=== PATIENT | male | born 1930 | race African-American/Black ===

== ENCOUNTER → 2016-12-20 | Outpatient (CLI) | payer MEDICARE ==
[~2016-12-20] VITALS: Ht 172.7 cm; Wt 49.2 kg
[~2016-12-20] MED LIST: COLL30OI TP; METF500T4 PO
[2016-12-20 08:24] VITALS: BP 130/70
== END | disposition home or self-care (01) ==
LOC: EDBD → HBOWC 08:15
PROVIDERS: ATTEND Emergency Medicine
DX: E11.621 Type 2 diabetes mellitus with foot ulcer (principal); E11.622 Type 2 diabetes mellitus with other skin ulcer; L97.811 Non-pressure chronic ulcer of other part of right lower leg limited to breakdown of skin; L97.411 Non-pressure chronic ulcer of right heel and midfoot limited to breakdown of skin; E11.52 Type 2 diabetes mellitus with diabetic peripheral angiopathy with gangrene; M86.68 Other chronic osteomyelitis, other site; Z89.512 Acquired absence of left leg below knee; Z72.0 Tobacco use
CPT/HCPCS: 97597; 97598; G0463

== ENCOUNTER → 2016-12-27 | Outpatient (CLI) | payer MEDICARE, BC | END | disposition home or self-care (01) | LOC: EDBD → RADPV 08:48 | PROVIDERS: ATTEND Emergency Medicine | DX: L97.819 Non-pressure chronic ulcer of other part of right lower leg with unspecified severity (principal); I70.8 Atherosclerosis of other arteries ==

== ENCOUNTER → 2017-01-04 | Outpatient (CLI) | payer MEDICARE, BC ==
[2017-01-04 11:49] VITALS: BP 136/68
== END | disposition home or self-care (01) ==
LOC: EDBD → HBOWC 09:45
PROVIDERS: ATTEND Emergency Medicine
DX: T87.89 Other complications of amputation stump (principal); E11.621 Type 2 diabetes mellitus with foot ulcer; L97.511 Non-pressure chronic ulcer of other part of right foot limited to breakdown of skin; E11.622 Type 2 diabetes mellitus with other skin ulcer; L97.811 Non-pressure chronic ulcer of other part of right lower leg limited to breakdown of skin; E11.51 Type 2 diabetes mellitus with diabetic peripheral angiopathy without gangrene; E11.69 Type 2 diabetes mellitus with other specified complication; M86.68 Other chronic osteomyelitis, other site; Z72.0 Tobacco use; Y83.5 Amputation of limb(s) as the cause of abnormal reaction of the patient, or of later complication, without mention of misadventure at the time of the procedure
CPT/HCPCS: 97597

== ENCOUNTER → 2017-01-18 | Outpatient (CLI) | payer MEDICARE, BC ==
[~2017-01-18] MED LIST changes: -METF500T4 PO
[2017-01-18 09:54] VITALS: BP 142/76
== END | disposition home or self-care (01) ==
LOC: EDBD → HBOWC 09:03
PROVIDERS: ATTEND Emergency Medicine
DX: E11.621 Type 2 diabetes mellitus with foot ulcer (principal); L97.411 Non-pressure chronic ulcer of right heel and midfoot limited to breakdown of skin; E11.622 Type 2 diabetes mellitus with other skin ulcer; L97.811 Non-pressure chronic ulcer of other part of right lower leg limited to breakdown of skin; E11.69 Type 2 diabetes mellitus with other specified complication; M86.68 Other chronic osteomyelitis, other site; E11.52 Type 2 diabetes mellitus with diabetic peripheral angiopathy with gangrene; Z72.0 Tobacco use
CPT/HCPCS: 97597

== ENCOUNTER → 2017-02-08 | Outpatient (CLI) | payer MEDICARE, BC ==
[2017-02-08 14:30] VITALS: BP 144/76
== END | disposition home or self-care (01) ==
LOC: HBOWC 13:22
PROVIDERS: ATTEND Emergency Medicine
DX: E11.622 Type 2 diabetes mellitus with other skin ulcer (principal); L97.811 Non-pressure chronic ulcer of other part of right lower leg limited to breakdown of skin; E11.621 Type 2 diabetes mellitus with foot ulcer; L97.411 Non-pressure chronic ulcer of right heel and midfoot limited to breakdown of skin; E11.52 Type 2 diabetes mellitus with diabetic peripheral angiopathy with gangrene; E11.69 Type 2 diabetes mellitus with other specified complication; M86.8X8 Other osteomyelitis, other site
CPT/HCPCS: 97597

== ENCOUNTER → 2017-03-14 | Outpatient (CLI) | payer MEDICARE, BC ==
[2017-03-14 12:02] VITALS: BP 120/66
== END | disposition home or self-care (01) ==
LOC: HBOWC 11:06
PROVIDERS: ATTEND Emergency Medicine
DX: E11.622 Type 2 diabetes mellitus with other skin ulcer (principal); L97.814 Non-pressure chronic ulcer of other part of right lower leg with necrosis of bone; E11.621 Type 2 diabetes mellitus with foot ulcer; L97.411 Non-pressure chronic ulcer of right heel and midfoot limited to breakdown of skin; E11.69 Type 2 diabetes mellitus with other specified complication; M86.68 Other chronic osteomyelitis, other site; E11.52 Type 2 diabetes mellitus with diabetic peripheral angiopathy with gangrene; Z72.0 Tobacco use
CPT/HCPCS: 97597

== ENCOUNTER → 2017-03-28 | Outpatient (CLI) | payer MEDICARE, BC ==
[2017-03-28 11:35] VITALS: BP 104/63
== END | disposition home or self-care (01) ==
LOC: HBOWC 11:09
PROVIDERS: ATTEND Emergency Medicine
DX: E11.622 Type 2 diabetes mellitus with other skin ulcer (principal); L97.811 Non-pressure chronic ulcer of other part of right lower leg limited to breakdown of skin; L97.411 Non-pressure chronic ulcer of right heel and midfoot limited to breakdown of skin; L97.821 Non-pressure chronic ulcer of other part of left lower leg limited to breakdown of skin; M86.661 Other chronic osteomyelitis, right tibia and fibula; E11.621 Type 2 diabetes mellitus with foot ulcer; Z89.512 Acquired absence of left leg below knee; E11.52 Type 2 diabetes mellitus with diabetic peripheral angiopathy with gangrene
CPT/HCPCS: 97597

== ENCOUNTER → 2017-04-11 | Outpatient (CLI) | payer MEDICARE, BC ==
[2017-04-11 08:21] VITALS: BP 147/65
== END | disposition home or self-care (01) ==
LOC: HBOWC 08:10
PROVIDERS: ATTEND Emergency Medicine
DX: E11.621 Type 2 diabetes mellitus with foot ulcer (principal); L97.411 Non-pressure chronic ulcer of right heel and midfoot limited to breakdown of skin; L97.511 Non-pressure chronic ulcer of other part of right foot limited to breakdown of skin; E11.622 Type 2 diabetes mellitus with other skin ulcer; L97.814 Non-pressure chronic ulcer of other part of right lower leg with necrosis of bone; L97.821 Non-pressure chronic ulcer of other part of left lower leg limited to breakdown of skin; E11.69 Type 2 diabetes mellitus with other specified complication; M86.661 Other chronic osteomyelitis, right tibia and fibula; E11.52 Type 2 diabetes mellitus with diabetic peripheral angiopathy with gangrene; Z89.512 Acquired absence of left leg below knee; Z72.0 Tobacco use
CPT/HCPCS: 97597

== ENCOUNTER → 2017-05-03 | Outpatient (CLI) | payer MEDICARE, BC ==
[2017-05-03 12:15] VITALS: BP 108/46
== END | disposition home or self-care (01) ==
LOC: HBOWC 11:04
PROVIDERS: ATTEND Emergency Medicine
DX: E11.621 Type 2 diabetes mellitus with foot ulcer (principal); L97.411 Non-pressure chronic ulcer of right heel and midfoot limited to breakdown of skin; E11.622 Type 2 diabetes mellitus with other skin ulcer; L97.811 Non-pressure chronic ulcer of other part of right lower leg limited to breakdown of skin; L97.821 Non-pressure chronic ulcer of other part of left lower leg limited to breakdown of skin; E11.69 Type 2 diabetes mellitus with other specified complication; M86.661 Other chronic osteomyelitis, right tibia and fibula; E11.52 Type 2 diabetes mellitus with diabetic peripheral angiopathy with gangrene; Z89.512 Acquired absence of left leg below knee; Z72.0 Tobacco use
CPT/HCPCS: 97597

== ENCOUNTER → 2017-05-27 | Outpatient (CLI) | payer MEDICARE, BC ==
[~2017-05-27] MED LIST changes: +METF500T4 PO
[2017-05-27 09:35] VITALS: BP 143/72
== END | disposition home or self-care (01) ==
LOC: HBOWC 08:45
PROVIDERS: ATTEND Emergency Medicine
DX: E11.622 Type 2 diabetes mellitus with other skin ulcer (principal); L97.811 Non-pressure chronic ulcer of other part of right lower leg limited to breakdown of skin; E11.621 Type 2 diabetes mellitus with foot ulcer; L97.411 Non-pressure chronic ulcer of right heel and midfoot limited to breakdown of skin; E11.52 Type 2 diabetes mellitus with diabetic peripheral angiopathy with gangrene; E11.69 Type 2 diabetes mellitus with other specified complication; M86.9 Osteomyelitis, unspecified; Z89.512 Acquired absence of left leg below knee
CPT/HCPCS: 97597

== ENCOUNTER → 2017-06-22 | Outpatient (CLI) | payer MEDICARE, BC ==
[~2017-06-22] MED LIST changes: -METF500T4 PO
[2017-06-22 11:33] VITALS: BP 147/72
== END | disposition home or self-care (01) ==
LOC: HBOWC 11:26
PROVIDERS: ATTEND Emergency Medicine
DX: E11.622 Type 2 diabetes mellitus with other skin ulcer (principal); L97.811 Non-pressure chronic ulcer of other part of right lower leg limited to breakdown of skin; E11.69 Type 2 diabetes mellitus with other specified complication; E11.52 Type 2 diabetes mellitus with diabetic peripheral angiopathy with gangrene; M86.661 Other chronic osteomyelitis, right tibia and fibula; M86.8X6 Other osteomyelitis, lower leg; Z89.512 Acquired absence of left leg below knee
CPT/HCPCS: 97597

== ENCOUNTER → 2017-07-06 | Outpatient (CLI) | payer MEDICARE, BC ==
[2017-07-06 11:51] VITALS: BP 137/70
== END | disposition home or self-care (01) ==
LOC: HBOWC 11:01
PROVIDERS: ATTEND Emergency Medicine
DX: E11.621 Type 2 diabetes mellitus with foot ulcer (principal); L97.511 Non-pressure chronic ulcer of other part of right foot limited to breakdown of skin; E11.69 Type 2 diabetes mellitus with other specified complication; M86.661 Other chronic osteomyelitis, right tibia and fibula; E11.52 Type 2 diabetes mellitus with diabetic peripheral angiopathy with gangrene; Z89.512 Acquired absence of left leg below knee
CPT/HCPCS: 97597

== ENCOUNTER → 2017-08-02 | Outpatient (CLI) | payer MEDICARE, BC ==
[~2017-08-02] MED LIST changes: +LIDOCAINE HCL 2% 5 ML JELLY TP ONE
[2017-08-02 08:57] VITALS: BP 154/79
== END | disposition home or self-care (01) ==
LOC: HBOWC 08:45
PROVIDERS: ATTEND Emergency Medicine
DX: S81.801D Unspecified open wound, right lower leg, subsequent encounter (principal); E11.52 Type 2 diabetes mellitus with diabetic peripheral angiopathy with gangrene; E11.69 Type 2 diabetes mellitus with other specified complication; M86.661 Other chronic osteomyelitis, right tibia and fibula; Z89.512 Acquired absence of left leg below knee; X58.XXXD Exposure to other specified factors, subsequent encounter
CPT/HCPCS: 11044

== ENCOUNTER → 2017-08-23 | Outpatient (CLI) | payer MEDICARE, BC ==
[2017-08-23 10:27] VITALS: BP 126/69
== END | disposition home or self-care (01) ==
LOC: HBOWC 09:41
PROVIDERS: ATTEND Emergency Medicine
DX: S81.801D Unspecified open wound, right lower leg, subsequent encounter (principal); E11.69 Type 2 diabetes mellitus with other specified complication; M86.661 Other chronic osteomyelitis, right tibia and fibula; E11.52 Type 2 diabetes mellitus with diabetic peripheral angiopathy with gangrene; Z89.512 Acquired absence of left leg below knee; X58.XXXD Exposure to other specified factors, subsequent encounter

== ENCOUNTER → 2017-09-06 | Outpatient (CLI) | payer MEDICARE, BC ==
[~2017-09-06] MED LIST changes: -LIDOCAINE HCL 2% 5 ML JELLY TP ONE
[2017-09-06 08:15] VITALS: BP 139/75
== END | disposition home or self-care (01) ==
LOC: HBOWC 07:51
PROVIDERS: ATTEND Emergency Medicine
DX: S81.801D Unspecified open wound, right lower leg, subsequent encounter (principal); E11.69 Type 2 diabetes mellitus with other specified complication; M86.661 Other chronic osteomyelitis, right tibia and fibula; E11.52 Type 2 diabetes mellitus with diabetic peripheral angiopathy with gangrene; X58.XXXD Exposure to other specified factors, subsequent encounter

== ENCOUNTER → 2017-10-07 | Outpatient (CLI) | payer MEDICARE, BC ==
[~2017-10-07] MED LIST changes: +LIDOCAINE HCL 2% 5 ML JELLY TP ONE
[2017-10-07 09:44] VITALS: BP 129/75
== END | disposition home or self-care (01) ==
LOC: HBOWC 09:19
PROVIDERS: ATTEND Emergency Medicine
DX: E11.622 Type 2 diabetes mellitus with other skin ulcer (principal); L97.814 Non-pressure chronic ulcer of other part of right lower leg with necrosis of bone; E11.69 Type 2 diabetes mellitus with other specified complication; M86.661 Other chronic osteomyelitis, right tibia and fibula; E11.52 Type 2 diabetes mellitus with diabetic peripheral angiopathy with gangrene; Z89.512 Acquired absence of left leg below knee
CPT/HCPCS: 97597

== ENCOUNTER → 2017-11-01 | Outpatient (CLI) | payer MEDICARE, BC ==
[~2017-11-01] MED LIST changes: -LIDOCAINE HCL 2% 5 ML JELLY TP ONE
[2017-11-01 14:37] VITALS: BP 128/55
== END | disposition home or self-care (01) ==
LOC: HBOWC 14:18
PROVIDERS: ATTEND Emergency Medicine
DX: E11.622 Type 2 diabetes mellitus with other skin ulcer (principal); L97.811 Non-pressure chronic ulcer of other part of right lower leg limited to breakdown of skin; E11.52 Type 2 diabetes mellitus with diabetic peripheral angiopathy with gangrene; E11.69 Type 2 diabetes mellitus with other specified complication; M86.661 Other chronic osteomyelitis, right tibia and fibula; Z89.512 Acquired absence of left leg below knee
CPT/HCPCS: 97597

== ENCOUNTER → 2017-12-02 | Outpatient (CLI) | payer MEDICARE, BC ==
[2017-12-02 14:54] VITALS: BP 142/73
== END | disposition home or self-care (01) ==
LOC: HBOWC 14:18
PROVIDERS: ATTEND Podiatrist
DX: E11.622 Type 2 diabetes mellitus with other skin ulcer (principal); L97.814 Non-pressure chronic ulcer of other part of right lower leg with necrosis of bone; E11.52 Type 2 diabetes mellitus with diabetic peripheral angiopathy with gangrene; E11.69 Type 2 diabetes mellitus with other specified complication; M86.661 Other chronic osteomyelitis, right tibia and fibula; Z89.512 Acquired absence of left leg below knee
CPT/HCPCS: 97597

== ENCOUNTER → 2018-01-10 | Outpatient (CLI) | payer MEDICARE, BC ==
[~2018-01-10] MED LIST changes: -COLL30OI TP; +LIDOCAINE HCL 2% 5 ML JELLY TP ONE
[2018-01-10 08:58] VITALS: BP 140/68
== END | disposition home or self-care (01) ==
LOC: HBOWC 07:57
PROVIDERS: ATTEND Emergency Medicine
DX: E11.622 Type 2 diabetes mellitus with other skin ulcer (principal); L97.811 Non-pressure chronic ulcer of other part of right lower leg limited to breakdown of skin; E11.69 Type 2 diabetes mellitus with other specified complication; M86.661 Other chronic osteomyelitis, right tibia and fibula; E11.52 Type 2 diabetes mellitus with diabetic peripheral angiopathy with gangrene; Z89.512 Acquired absence of left leg below knee
CPT/HCPCS: 11042

== ENCOUNTER → 2018-01-31 | Outpatient (CLI) | payer MEDICARE, BC ==
[2018-01-31 11:08] VITALS: BP 158/89
== END | disposition home or self-care (01) ==
LOC: HBOWC 10:17
PROVIDERS: ATTEND Emergency Medicine
DX: E11.622 Type 2 diabetes mellitus with other skin ulcer (principal); L97.811 Non-pressure chronic ulcer of other part of right lower leg limited to breakdown of skin; E11.69 Type 2 diabetes mellitus with other specified complication; M86.661 Other chronic osteomyelitis, right tibia and fibula; E11.52 Type 2 diabetes mellitus with diabetic peripheral angiopathy with gangrene; I96 Gangrene, not elsewhere classified; Z89.512 Acquired absence of left leg below knee
CPT/HCPCS: 11042

== ENCOUNTER → 2018-02-28 | Outpatient (CLI) | payer MEDICARE, BC ==
[2018-02-28 10:21] VITALS: BP 135/76
== END | disposition home or self-care (01) ==
LOC: HBOWC 10:20
PROVIDERS: ATTEND Emergency Medicine
DX: E11.622 Type 2 diabetes mellitus with other skin ulcer (principal); L97.811 Non-pressure chronic ulcer of other part of right lower leg limited to breakdown of skin; E11.69 Type 2 diabetes mellitus with other specified complication; M86.661 Other chronic osteomyelitis, right tibia and fibula; E11.52 Type 2 diabetes mellitus with diabetic peripheral angiopathy with gangrene; I96 Gangrene, not elsewhere classified; Z89.512 Acquired absence of left leg below knee
CPT/HCPCS: 97597

== ENCOUNTER → 2018-04-25 | Outpatient (CLI) | payer MEDICARE, BC ==
[2018-04-25 09:06] VITALS: BP 155/78
== END | disposition home or self-care (01) ==
LOC: HBOWC 09:03
PROVIDERS: ATTEND Emergency Medicine
DX: E11.622 Type 2 diabetes mellitus with other skin ulcer (principal); L97.811 Non-pressure chronic ulcer of other part of right lower leg limited to breakdown of skin; B35.1 Tinea unguium; E11.69 Type 2 diabetes mellitus with other specified complication; M86.661 Other chronic osteomyelitis, right tibia and fibula; E11.52 Type 2 diabetes mellitus with diabetic peripheral angiopathy with gangrene; I96 Gangrene, not elsewhere classified; Z89.512 Acquired absence of left leg below knee
CPT/HCPCS: 11044

== ENCOUNTER → 2018-06-06 | Outpatient (CLI) | payer MEDICARE, BC ==
[2018-06-06 08:54] VITALS: BP 144/83
== END | disposition home or self-care (01) ==
LOC: HBOWC 08:50
PROVIDERS: ATTEND Emergency Medicine
DX: E11.622 Type 2 diabetes mellitus with other skin ulcer (principal); L97.814 Non-pressure chronic ulcer of other part of right lower leg with necrosis of bone; B35.1 Tinea unguium; E11.69 Type 2 diabetes mellitus with other specified complication; M86.661 Other chronic osteomyelitis, right tibia and fibula; E11.52 Type 2 diabetes mellitus with diabetic peripheral angiopathy with gangrene; I96 Gangrene, not elsewhere classified; Z89.512 Acquired absence of left leg below knee
CPT/HCPCS: 11042

== ENCOUNTER → 2018-07-11 | Outpatient (CLI) | payer MEDICARE, BC ==
[2018-07-11 09:10] VITALS: BP 140/82
== END | disposition home or self-care (01) ==
LOC: HBOWC 08:56
PROVIDERS: ATTEND Emergency Medicine
DX: E11.622 Type 2 diabetes mellitus with other skin ulcer (principal); L97.814 Non-pressure chronic ulcer of other part of right lower leg with necrosis of bone; B35.1 Tinea unguium; E11.69 Type 2 diabetes mellitus with other specified complication; M86.661 Other chronic osteomyelitis, right tibia and fibula; E11.52 Type 2 diabetes mellitus with diabetic peripheral angiopathy with gangrene; I96 Gangrene, not elsewhere classified; Z89.512 Acquired absence of left leg below knee
CPT/HCPCS: 11042

== ENCOUNTER → 2018-08-08 | Outpatient (CLI) | payer MEDICARE, BC ==
[2018-08-08 09:10] VITALS: BP 130/69
== END | disposition home or self-care (01) ==
LOC: HBOWC 08:51
PROVIDERS: ATTEND Emergency Medicine
DX: E11.622 Type 2 diabetes mellitus with other skin ulcer (principal); L97.814 Non-pressure chronic ulcer of other part of right lower leg with necrosis of bone; B35.1 Tinea unguium; E11.69 Type 2 diabetes mellitus with other specified complication; M86.661 Other chronic osteomyelitis, right tibia and fibula; E11.52 Type 2 diabetes mellitus with diabetic peripheral angiopathy with gangrene; I96 Gangrene, not elsewhere classified; Z89.512 Acquired absence of left leg below knee

== ENCOUNTER → 2018-09-27 | Outpatient (CLI) | payer MEDICARE, BC ==
[2018-09-27 08:05] VITALS: BP 136/69
== END | disposition home or self-care (01) ==
LOC: HBOWC 08:08
PROVIDERS: ATTEND Internal Medicine
DX: E11.622 Type 2 diabetes mellitus with other skin ulcer (principal); L97.814 Non-pressure chronic ulcer of other part of right lower leg with necrosis of bone; E11.69 Type 2 diabetes mellitus with other specified complication; M86.661 Other chronic osteomyelitis, right tibia and fibula; E11.52 Type 2 diabetes mellitus with diabetic peripheral angiopathy with gangrene; I96 Gangrene, not elsewhere classified; B35.1 Tinea unguium; Z89.512 Acquired absence of left leg below knee

== ENCOUNTER → 2018-10-03 | Outpatient (CLI) | payer MEDICARE, BC ==
[2018-10-03 10:00] VITALS: BP 122/75
== END | disposition home or self-care (01) ==
LOC: HBOWC 09:18
PROVIDERS: ATTEND Emergency Medicine
DX: E11.622 Type 2 diabetes mellitus with other skin ulcer (principal); L97.816 Non-pressure chronic ulcer of other part of right lower leg with bone involvement without evidence of necrosis; B35.1 Tinea unguium; E11.69 Type 2 diabetes mellitus with other specified complication; M86.661 Other chronic osteomyelitis, right tibia and fibula; E11.52 Type 2 diabetes mellitus with diabetic peripheral angiopathy with gangrene; I96 Gangrene, not elsewhere classified; Z89.512 Acquired absence of left leg below knee

== ENCOUNTER → 2018-10-24 | Outpatient (CLI) | payer MEDICARE, BC ==
[2018-10-24 08:00] VITALS: BP 134/68
[2018-10-24 08:29] LABS: GLUCOMETER DEV NAME(LOC) HBW.; GLUCOSE,POINT OF CARE 57 MG/DL (70-110)
== END | disposition home or self-care (01) ==
LOC: HBOWC 07:41
PROVIDERS: ATTEND Emergency Medicine
DX: E11.622 Type 2 diabetes mellitus with other skin ulcer (principal); L97.814 Non-pressure chronic ulcer of other part of right lower leg with necrosis of bone; E11.69 Type 2 diabetes mellitus with other specified complication; M86.661 Other chronic osteomyelitis, right tibia and fibula; E11.52 Type 2 diabetes mellitus with diabetic peripheral angiopathy with gangrene; I96 Gangrene, not elsewhere classified; B35.1 Tinea unguium; Z89.512 Acquired absence of left leg below knee
CPT/HCPCS: 97597

== ENCOUNTER → 2018-11-29 | Outpatient (CLI) | payer MEDICARE, BC ==
[2018-11-29 08:00] VITALS: BP 146/74
== END | disposition home or self-care (01) ==
LOC: HBOWC 07:58
PROVIDERS: ATTEND Internal Medicine
DX: E11.622 Type 2 diabetes mellitus with other skin ulcer (principal); L97.814 Non-pressure chronic ulcer of other part of right lower leg with necrosis of bone; E11.69 Type 2 diabetes mellitus with other specified complication; M86.661 Other chronic osteomyelitis, right tibia and fibula; E11.52 Type 2 diabetes mellitus with diabetic peripheral angiopathy with gangrene; I96 Gangrene, not elsewhere classified; B35.1 Tinea unguium; Z89.512 Acquired absence of left leg below knee

== ENCOUNTER → 2019-01-02 | Outpatient (CLI) | payer MEDICARE, BC ==
[2019-01-02 09:15] VITALS: BP 136/69
== END | disposition home or self-care (01) ==
LOC: HBOWC 09:08
PROVIDERS: ATTEND Emergency Medicine
DX: E11.622 Type 2 diabetes mellitus with other skin ulcer (principal); L97.816 Non-pressure chronic ulcer of other part of right lower leg with bone involvement without evidence of necrosis; E11.621 Type 2 diabetes mellitus with foot ulcer; L97.512 Non-pressure chronic ulcer of other part of right foot with fat layer exposed; E11.52 Type 2 diabetes mellitus with diabetic peripheral angiopathy with gangrene; I96 Gangrene, not elsewhere classified; B35.1 Tinea unguium; E11.69 Type 2 diabetes mellitus with other specified complication; M86.671 Other chronic osteomyelitis, right ankle and foot; Z89.512 Acquired absence of left leg below knee
CPT/HCPCS: 97597

== ENCOUNTER → 2019-01-30 | Outpatient (CLI) | payer MEDICARE, BC ==
[2019-01-30 09:20] VITALS: BP 112/81
== END | disposition home or self-care (01) ==
LOC: HBOWC 09:19
PROVIDERS: ATTEND Emergency Medicine
DX: E11.622 Type 2 diabetes mellitus with other skin ulcer (principal); L97.816 Non-pressure chronic ulcer of other part of right lower leg with bone involvement without evidence of necrosis; E11.621 Type 2 diabetes mellitus with foot ulcer; L97.512 Non-pressure chronic ulcer of other part of right foot with fat layer exposed; B35.1 Tinea unguium; E11.52 Type 2 diabetes mellitus with diabetic peripheral angiopathy with gangrene; I96 Gangrene, not elsewhere classified; E11.69 Type 2 diabetes mellitus with other specified complication; M86.671 Other chronic osteomyelitis, right ankle and foot; Z96.652 Presence of left artificial knee joint; Z89.512 Acquired absence of left leg below knee